=== PATIENT | male | born 1970 | race Caucasian/White ===

== ENCOUNTER 2019-03-12 09:16 | Outpatient (REF) | payer MEDICAID, SELFPAY ==
[2019-03-13 08:23] LABS: ALT 120 U/L (12-78); AST 54 U/L (15-37); Alkaline Phosphatase 149 U/L (46-116); BUN 15 mg/dL (7-18); Bilirubin, Total 0.9 mg/dL (0.2-1.0); CREATININE 0.96 mg/dL (0.70-1.30); Calcium 8.8 mg/dL (8.5-10.1); Chloride 101 mmol/L (98-107); Cholesterol 157 mg/dL (50-200); Glucose 185 mg/dL (70-100); HDL Cholesterol 33 mg/dL (40-60); LDL CHOLESTEROL 99 mg/dL (<100); Potassium 3.9 mmol/L (3.5-5.1); Sodium 137 mmol/L (136-145); Total Protein 7.5 g/dL (6.4-8.2); Triglyceride 299 mg/dL (30-150)
[2019-03-13 09:06] LABS: COMMENT (LAB VIEW ONLY) 149.79 mg/dL
== END 2019-03-12 09:36 ==
LOC: NCHCN 09:16
PROVIDERS: PCP Nurse Practitioner Family; Visit Provider Nurse Practitioner Family
DX: E11.9 Type 2 diabetes mellitus without complications (principal); E66.9 Obesity, unspecified
CPT/HCPCS: 80053; 80061; 83721; 82043; 82570

== ENCOUNTER 2019-06-11 09:24 | Outpatient (REF) | payer MEDICAID, SELFPAY ==
[2019-06-11 21:41] LABS: ALT 43 U/L (12-78); AST 19 U/L (15-37); Alkaline Phosphatase 120 U/L (46-116); Anion Gap 11.3 mmol/L (3-11); BUN 11 mg/dL (7-18); Bilirubin, Total 0.6 mg/dL (0.2-1.0); CO2 24.7 mmol/L (21.0-32.0); CREATININE 0.74 mg/dL (0.70-1.30); Calcium 9.1 mg/dL (8.5-10.1); Calculated LDL 104 mg/dL; Chloride 103 mmol/L (98-107); Cholesterol 166 mg/dL (50-200); Glucose 112 mg/dL (70-100); HDL Cholesterol 42 mg/dL (40-60); Potassium 4.3 mmol/L (3.5-5.1); Sodium 139 mmol/L (136-145); Total Protein 7.5 g/dL (6.4-8.2); Triglyceride 100 mg/dL (30-150)
== END 2019-06-11 09:44 ==
LOC: NCHCN 09:24
PROVIDERS: PCP Nurse Practitioner Family; Visit Provider Nurse Practitioner Family
DX: E11.9 Type 2 diabetes mellitus without complications (principal); E78.6 Lipoprotein deficiency; R74.8 Abnormal levels of other serum enzymes; F41.8 Other specified anxiety disorders; E66.9 Obesity, unspecified
CPT/HCPCS: 80053; 80061; 83721

== ENCOUNTER 2019-12-25 16:37 | Outpatient (REF) | payer MEDICAID, SELFPAY ==
[2019-12-25 21:48] LABS: COMMENT (LAB VIEW ONLY) 182.97 mg/dL
== END 2019-12-25 16:57 ==
LOC: NCHCN 16:37
PROVIDERS: PCP Nurse Practitioner Family; Visit Provider Nurse Practitioner Family
DX: E11.9 Type 2 diabetes mellitus without complications (principal)
CPT/HCPCS: 82043; 82570

== ENCOUNTER 2020-01-25 11:18 | Outpatient (REF) | payer MEDICAID, SELFPAY ==
[2020-01-25 20:21] LABS: Anion Gap 11.4 mmol/L (3-11); BUN 17 mg/dL (7-18); CO2 26.6 mmol/L (21.0-32.0); CREATININE 0.79 mg/dL (0.70-1.30); Calcium 8.7 mg/dL (8.5-10.1); Chloride 102 mmol/L (98-107); Glucose 172 mg/dL (74-106); Potassium 4.3 mmol/L (3.5-5.1); Sodium 140 mmol/L (136-145)
== END 2020-01-25 11:38 ==
LOC: NCHCN 11:18
PROVIDERS: PCP Nurse Practitioner Family; Visit Provider Nurse Practitioner Family
DX: E11.9 Type 2 diabetes mellitus without complications (principal); R80.9 Proteinuria, unspecified; I10 Essential (primary) hypertension
CPT/HCPCS: 80048

== ENCOUNTER 2020-07-08 13:36 | Outpatient (REF) | payer MEDICAID, SELFPAY ==
[2020-07-08 22:19] LABS: ALT 83 U/L (16-63); AST 34 U/L (15-37); Albumin 4.4 g/dL (3.4-5.0); Alkaline Phosphatase 115 U/L (46-116); Anion Gap 8.6 mmol/L (3-11); BUN 14 mg/dL (7-18); Bilirubin, Total 0.9 mg/dL (0.2-1.0); CO2 27.4 mmol/L (21.0-32.0); CREATININE 0.82 mg/dL (0.70-1.30); Calcium 9.1 mg/dL (8.5-10.1); Calculated LDL 63 mg/dL (<100); Chloride 105 mmol/L (98-107); Cholesterol 133 mg/dL (<200); Glucose 94 mg/dL (74-106); HDL Cholesterol 39 mg/dL (40-60); Potassium 4.4 mmol/L (3.5-5.1); Sodium 141 mmol/L (136-145); Total Protein 7.9 g/dL (6.4-8.2); Triglyceride 155 mg/dL (<150); Vitamin B12 512 pg/mL (193-986)
[2020-07-08 22:23] LABS: Hemoglobin A1C 6.1 % (<5.7)
[2020-07-09 18:26] LABS: PSA, Screening 0.2 ng/mL (0.0-3.5)
== END 2020-07-08 13:56 ==
LOC: NCHCN 13:36
PROVIDERS: PCP Nurse Practitioner Family; Visit Provider Nurse Practitioner Family
DX: E78.6 Lipoprotein deficiency (principal); I10 Essential (primary) hypertension; R35.0 Frequency of micturition; F41.8 Other specified anxiety disorders; E11.9 Type 2 diabetes mellitus without complications; Z12.5 Encounter for screening for malignant neoplasm of prostate
CPT/HCPCS: 80053; 80061; 84153; 82607; 83036

== ENCOUNTER 2020-09-08 19:14 | Outpatient (REF) | payer MEDICAID, SELFPAY ==
[2020-09-08 21:17] LABS: Abs Immature Grans 0.03 10^3/uL (0.0-0.06); Absolute Basophil Count 0.05 10^3/uL (0.0-0.2); Absolute Lymphocyte Count 2.05 10^3/uL (1.2-3.4); Absolute Monocyte Count 0.94 10^3/uL (0.1-0.8); Absolute Neutrophil Count 5.67 10^3/uL (1.2-6.7); Basophils % 0.6; Eosinophils % 3.3; HCT 44.9 % (40.0-50.0); HGB 15.1 g/dL (13.5-17.5); Immature Grans % 0.3; Lymphocytes % 22.7; MCH 30.9 pg (27.0-33.0); MCHC 33.6 % (32.0-36.0); MPV 12.6 fL (8.0-11.0); Monocytes % 10.4; Neutrophils % 62.7; Nucleated RBC 0 %; Platelet Count 163 10^3/uL (130-400); RBC 4.88 10^6/uL (4.36-5.78); RDW 13.8 % (11.8-14.1); RDW-SD 46.8 fL; WBC 9.04 10^3/uL (4.4-10.8)
[2020-09-08 21:18] LABS: Bilirubin Negative (Negative); Blood Trace-lysed (Negative); Clarity Clear (Clear); Glucose >=1000 mg/dL (Negative); Ketones Negative (Negative); Leukocyte Esterase Negative (Negative); Nitrite Negative (Negative); Specific Gravity 1.025 (1.005-1.025); Urobilinogen 0.2 EU/dL (Up TO 0.2); pH 6.5 (5-8)
[2020-09-08 21:28] LABS: ALT 68 U/L (16-63); AST 25 U/L (15-37); Alkaline Phosphatase 138 U/L (46-116); Anion Gap 8.8 mmol/L (3-11); BUN 17 mg/dL (7-18); Bilirubin, Total 0.6 mg/dL (0.2-1.0); CO2 27.2 mmol/L (21.0-32.0); CREATININE 0.85 mg/dL (0.70-1.30); Calcium 9.4 mg/dL (8.5-10.1); Chloride 102 mmol/L (98-107); Glucose 106 mg/dL (74-106); Potassium 4.1 mmol/L (3.5-5.1); Sodium 138 mmol/L (136-145); Total Protein 7.9 g/dL (6.4-8.2)
[2020-09-08 21:47] LABS: Bacteria Negative HPF (Negative); C & S Indicated? No; Casts Negative LPF (Negative); Crystals Negative HPF (Negative); Epithelial Cells Rare HPF (Negative); Mucus Negative (Negative); RBC 0-2 HPF (0-2); WBC 0-2 HPF (0-5)
== END 2020-09-08 19:34 ==
LOC: NCHCN 19:14
PROVIDERS: PCP Nurse Practitioner Family; Visit Provider Nurse Practitioner Community Health
DX: R35.0 Frequency of micturition (principal)
CPT/HCPCS: 80053; 81003; 81015; 85025

== ENCOUNTER 2021-01-05 16:19 | Outpatient (REF) | payer MEDICAID, SELFPAY ==
[2021-01-05 14:04] LABS: COMMENT (LAB VIEW ONLY) 190.17 mg/dL; Microalb ug/mg Crea 24.5 ug/mg Cr
== END 2021-01-05 16:20 | disposition home or self-care (01) ==
LOC: NCHCN 16:19
PROVIDERS: PCP Nurse Practitioner Family; Visit Provider Nurse Practitioner Family
DX: E11.9 Type 2 diabetes mellitus without complications (principal); I10 Essential (primary) hypertension; R35.1 Nocturia; R80.9 Proteinuria, unspecified
CPT/HCPCS: 82043; 82570

== ENCOUNTER 2021-10-09 15:15 | Outpatient (REF) | payer MEDICAID, SELFPAY ==
[2021-10-09 22:04] LABS: ALT 54 U/L (16-63); AST 21 U/L (15-37); Albumin 4.3 g/dL (3.4-5.0); Alkaline Phosphatase 125 U/L (46-116); Anion Gap 9.7 mmol/L (3-11); BUN 14 mg/dL (7-18); Bilirubin, Total 0.9 mg/dL (0.2-1.0); CO2 28.3 mmol/L (21.0-32.0); CREATININE 0.9 mg/dL (0.70-1.30); Calcium 9.3 mg/dL (8.5-10.1); Chloride 102 mmol/L (98-107); Glucose 145 mg/dL (74-106); Potassium 4.2 mmol/L (3.5-5.1); Sodium 140 mmol/L (136-145); Total Protein 7.8 g/dL (6.4-8.2); Vitamin B12 469 pg/mL (193-986)
== END 2021-10-09 15:16 | disposition home or self-care (01) ==
LOC: NCHCN 15:15
PROVIDERS: PCP Nurse Practitioner Family; Visit Provider Nurse Practitioner Family
DX: E11.9 Type 2 diabetes mellitus without complications (principal); I10 Essential (primary) hypertension; R74.8 Abnormal levels of other serum enzymes; E78.6 Lipoprotein deficiency
CPT/HCPCS: 80053; 82607; 83036

== ENCOUNTER 2022-04-15 09:33 | Outpatient (REF) | payer MEDICAID, SELFPAY ==
[2022-04-15 16:09] LABS: COMMENT (LAB VIEW ONLY) 174.69 mg/dL; Microalb ug/mg Crea 27.9 ug/mg Cr
== END 2022-04-15 09:34 | disposition home or self-care (01) ==
LOC: NCHCN 09:33
PROVIDERS: PCP Nurse Practitioner Family; Visit Provider Nurse Practitioner Family
DX: E11.9 Type 2 diabetes mellitus without complications (principal); R80.9 Proteinuria, unspecified
CPT/HCPCS: 82043; 82570

== ENCOUNTER 2022-08-16 16:46 | Outpatient (REF) | payer MEDICAID, SELFPAY ==
[2022-08-16 14:48] LABS: ALT 44 U/L (16-63); AST 20 U/L (15-37); Albumin 4.4 g/dL (3.4-5.0); Alkaline Phosphatase 150 U/L (46-116); Anion Gap 10.4 mmol/L (3-11); BUN 18 mg/dL (7-18); Bilirubin, Total 0.7 mg/dL (0.2-1.0); CO2 26.6 mmol/L (21.0-32.0); CREATININE 0.8 mg/dL (0.70-1.30); Calcium 9.6 mg/dL (8.5-10.1); Chloride 101 mmol/L (98-107); Estimated GFR 106.48 (mL/min/1.73m2); Glucose 120 mg/dL (74-106); Potassium 4.2 mmol/L (3.5-5.1); Sodium 138 mmol/L (136-145); Total Protein 8.4 g/dL (6.4-8.2)
== END 2022-08-16 16:47 | disposition home or self-care (01) ==
LOC: NCHCN 16:46
PROVIDERS: PCP Nurse Practitioner Family; Visit Provider Nurse Practitioner Family
DX: I10 Essential (primary) hypertension (principal); E11.9 Type 2 diabetes mellitus without complications
CPT/HCPCS: 80053

== ENCOUNTER 2023-01-24 14:01 | Outpatient (REF) | payer MEDICAID, SELFPAY ==
[2023-01-24 18:14] LABS: COMMENT (LAB VIEW ONLY) 71.33 mg/dL
== END 2023-01-24 14:02 | disposition home or self-care (01) ==
LOC: NCHCN 14:01
PROVIDERS: PCP Nurse Practitioner Family; Visit Provider Nurse Practitioner Family
DX: E11.9 Type 2 diabetes mellitus without complications (principal)
CPT/HCPCS: 82043; 82570

== ENCOUNTER 2023-04-21 11:47 | Outpatient (REF) | payer MEDICAID, SELFPAY ==
[2023-04-21 14:46] LABS: HCT 44.8 % (40.0-50.0); HGB 14.9 g/dL (13.5-17.5); MCH 31.2 pg (27.0-33.0); MCHC 33.3 % (32.0-36.0); MCV 94 fL (80-95); MPV 12.6 fL (8.0-11.0); Platelet Count 154 10^3/uL (130-400); RBC 4.77 10^6/uL (4.36-5.78); RDW-SD 48.7 fL; WBC 8.43 10^3/uL (4.4-10.8)
[2023-04-21 15:34] LABS: ALT 50 U/L (16-63); AST 21 U/L (15-37); Albumin 4.3 g/dL (3.4-5.0); Alkaline Phosphatase 112 U/L (46-116); Anion Gap 10.9 mmol/L (3-11); BUN 15 mg/dL (7-18); Bilirubin, Total 0.8 mg/dL (0.2-1.0); CO2 26.1 mmol/L (21.0-32.0); CREATININE 0.8 mg/dL (0.70-1.30); Calcium 9.2 mg/dL (8.5-10.1); Chloride 104 mmol/L (98-107); Estimated GFR 105.82 (mL/min/1.73m2); GGT 58 U/L (15-85); Glucose 126 mg/dL (74-106); Potassium 4.3 mmol/L (3.5-5.1); Sodium 141 mmol/L (136-145); Total Protein 8.1 g/dL (6.4-8.2)
[2023-04-21 15:56] LABS: Hemoglobin A1C 6.3 % (<5.7)
[2023-04-21 16:09] LABS: Calculated LDL 84 mg/dL (<100); Cholesterol 149 mg/dL (<200); HDL Cholesterol 36 mg/dL (40-60); Triglyceride 147 mg/dL (<150)
== END 2023-04-21 11:48 | disposition home or self-care (01) ==
LOC: NCHCN 11:47
PROVIDERS: PCP Nurse Practitioner Family; Visit Provider Nurse Practitioner Family
DX: R74.8 Abnormal levels of other serum enzymes (principal); E11.9 Type 2 diabetes mellitus without complications; I10 Essential (primary) hypertension; E78.6 Lipoprotein deficiency
CPT/HCPCS: 80053; 80061; 85027; 82977; 83036

== ENCOUNTER 2024-01-02 18:32 | Outpatient (REF) | payer MEDICAID, SELFPAY ==
[2024-01-02 22:07] LABS: ALT 43 U/L (16-63); AST 18 U/L (15-37); Albumin 4.3 g/dL (3.4-5.0); Alkaline Phosphatase 111 U/L (46-116); Anion Gap 14.7 mmol/L (3-11); BUN 19 mg/dL (7-18); Bilirubin, Total 0.7 mg/dL (0.2-1.0); CO2 21.3 mmol/L (21.0-32.0); CREATININE 0.9 mg/dL (0.70-1.30); Calcium 9.5 mg/dL (8.5-10.1); Chloride 102 mmol/L (98-107); Estimated GFR 102.12 (mL/min/1.73m2); Glucose 150 mg/dL (74-106); Potassium 4.1 mmol/L (3.5-5.1); Sodium 138 mmol/L (136-145); Total Protein 8.1 g/dL (6.4-8.2)
[2024-01-02 22:13] LABS: Hemoglobin A1C 7.1 % (<5.7)
== END 2024-01-02 18:33 | disposition home or self-care (01) ==
LOC: NCHCN 18:32
PROVIDERS: PCP Nurse Practitioner Family; Visit Provider Nurse Practitioner Family
DX: E11.9 Type 2 diabetes mellitus without complications (principal)
CPT/HCPCS: 80053; 83036

== ENCOUNTER 2024-09-04 21:47 | Outpatient (REF) | payer MEDICAID, SELFPAY ==
[2024-09-04 17:24] LABS: COMMENT (LAB VIEW ONLY) 64.65 mg/dL; Microalb ug/mg Crea 26.9 ug/mg Cr
== END 2024-09-04 21:48 | disposition home or self-care (01) ==
LOC: NCHCN 21:47
PROVIDERS: PCP Nurse Practitioner Family; Visit Provider Nurse Practitioner Family
DX: E11.9 Type 2 diabetes mellitus without complications (principal)
CPT/HCPCS: 82043; 82570

== ENCOUNTER 2025-01-28 15:45 | Outpatient (REF) | payer MEDICAID, SELFPAY ==
[2025-01-28 21:42] LABS: HCT 45.5 % (40.0-50.0); HGB 15.7 g/dL (13.5-17.5); MCH 31.4 pg (27.0-33.0); MCHC 34.5 % (32.0-36.0); MCV 91 fL (80-95); MPV 13.2 fL (8.0-11.0); RDW 13.8 % (11.8-14.1); RDW-SD 46.5 fL; WBC 8.58 10^3/uL (4.4-10.8)
[2025-01-28 22:31] LABS: Platelet Count 153 10^3/uL (130-400)
[2025-01-28 22:49] LABS: ALT 36 U/L (16-63); AST 22 U/L (15-37); Albumin 4.4 g/dL (3.4-5.0); Alkaline Phosphatase 133 U/L (46-116); Anion Gap 11.2 mmol/L (3-11); BUN 14 mg/dL (7-18); Bilirubin, Total 0.8 mg/dL (0.2-1.0); CO2 25.8 mmol/L (21.0-32.0); CREATININE 0.9 mg/dL (0.70-1.30); Calcium 9.7 mg/dL (8.5-10.1); Calculated LDL 47 mg/dL (<100); Chloride 105 mmol/L (98-107); Cholesterol 105 mg/dL (<200); Estimated GFR 101.49 (mL/min/1.73m2); Glucose 117 mg/dL (74-106); HDL Cholesterol 44 mg/dL (>or=40); Potassium 4.7 mmol/L (3.5-5.1); Sodium 142 mmol/L (136-145); Total Protein 8.3 g/dL (6.4-8.2); Triglyceride 73 mg/dL (<150)
== END 2025-01-28 15:46 | disposition home or self-care (01) ==
LOC: NCHCN 15:45
PROVIDERS: PCP Nurse Practitioner Family; Visit Provider Nurse Practitioner Family
DX: E11.9 Type 2 diabetes mellitus without complications (principal); I10 Essential (primary) hypertension
CPT/HCPCS: 80053; 80061; 85027

== ENCOUNTER 2025-05-13 15:50 | Outpatient (REF) | payer MEDICAID, SELFPAY | END 2025-05-13 15:51 | disposition home or self-care (01) | LOC: NCHCN 15:50 | PROVIDERS: PCP Nurse Practitioner Family; Visit Provider Internal Medicine | DX: J02.9 Acute pharyngitis, unspecified (principal) | CPT/HCPCS: 87070 ==

== ENCOUNTER 2025-05-27 20:08 | Outpatient (REF) | payer MEDICAID, SELFPAY ==
[2025-05-27 21:52] LABS: Abs Immature Grans 0.05 10^3/uL (0.0-0.06); HCT 40.5 % (40.0-50.0); HGB 13.6 g/dL (13.5-17.5); Immature Grans % 0.4 %; MCH 30.8 pg (27.0-33.0); MCHC 33.6 % (32.0-36.0); MCV 92 fL (80-95); MPV 12.2 fL (8.0-11.0); Platelet Count 224 10^3/uL (130-400); RBC 4.42 10^6/uL (4.36-5.78); RDW 14.5 % (11.8-14.1); RDW-SD 48.7 fL; WBC 12.29 10^3/uL (4.4-10.8)
[2025-05-27 22:08] LABS: ALT 44 U/L (16-63); AST 20 U/L (15-37); Albumin 4.5 g/dL (3.4-5.0); Alkaline Phosphatase 110 U/L (46-116); Anion Gap 9.6 mmol/L (3-11); BUN 21 mg/dL (7-18); Bilirubin, Total 1.1 mg/dL (0.2-1.0); CO2 25.4 mmol/L (21.0-32.0); Calcium 10.0 mg/dL (8.5-10.1); Chloride 103 mmol/L (98-107); Estimated GFR 64.88 (mL/min/1.73m2); Glucose 116 mg/dL (74-106); Potassium 4.3 mmol/L (3.5-5.1); Sodium 138 mmol/L (136-145); TSH 2.40 uIU/mL (0.36-3.74); Total Protein 8.8 g/dL (6.4-8.2)
[2025-05-29 10:06] LABS: Lyme Ab w Rflx to Lyme Confirm Negative (Negative)
[2025-05-31 13:43] LABS: B. miyamotoi PCR Negative (Negative); Babesia divergens/MO-1 Negative (Negative); Ehrlichia muris eauclairensis Negative (Negative)
== END 2025-05-27 20:09 | disposition home or self-care (01) ==
LOC: NCHCN 20:08
PROVIDERS: PCP Nurse Practitioner Family; Visit Provider Nurse Practitioner Family
DX: R53.83 Other fatigue (principal)
CPT/HCPCS: 80053; 87798; 84443; 85025; 86618

== ENCOUNTER 2025-06-06 11:19 | Outpatient (REF) | payer MEDICAID, SELFPAY ==
[2025-06-06 15:38] LABS: Abs Immature Grans 0.03 10^3/uL (0.0-0.06); HCT 40.5 % (40.0-50.0); HGB 13.5 g/dL (13.5-17.5); Immature Grans % 0.4 %; MCH 30.5 pg (27.0-33.0); MCHC 33.3 % (32.0-36.0); MCV 92 fL (80-95); MPV 11.7 fL (8.0-11.0); Platelet Count 175 10^3/uL (130-400); RBC 4.42 10^6/uL (4.36-5.78); RDW 14.3 % (11.8-14.1); RDW-SD 47.8 fL; WBC 8.20 10^3/uL (4.4-10.8)
[2025-06-06 17:07] LABS: ALT 38 U/L (16-63); AST 19 U/L (15-37); Albumin 4.4 g/dL (3.4-5.0); Alkaline Phosphatase 107 U/L (46-116); Anion Gap 9.4 mmol/L (3-11); BUN 17 mg/dL (7-18); Bilirubin, Total 1.1 mg/dL (0.2-1.0); CO2 25.6 mmol/L (21.0-32.0); Calcium 9.7 mg/dL (8.5-10.1); Chloride 102 mmol/L (98-107); Estimated GFR 104.51 (mL/min/1.73m2); Glucose 103 mg/dL (74-106); Potassium 4.4 mmol/L (3.5-5.1); Sodium 137 mmol/L (136-145); Total Protein 8.4 g/dL (6.4-8.2)
== END 2025-06-06 11:20 | disposition home or self-care (01) ==
LOC: NCHCN 11:19
PROVIDERS: PCP Nurse Practitioner Family; Visit Provider Family Medicine
DX: R42 Dizziness and giddiness (principal)
CPT/HCPCS: 80053; 85025